=== PATIENT | female | born 1950 | race Caucasian/White ===

== ENCOUNTER 2018-11-28 08:50 | Day surgery (SDC) | payer MEDICARE, OTHER ==
[~2018-11-28] VITALS: Ht 160 cm; Wt 82.6 kg
[~2018-11-28 08:50] MED LIST: ASPI-903 PO
[2018-11-28 09:34] VITALS: Ht 160 cm; Wt 82.6 kg
[2018-11-28] MEDS ORDERED: LIDOCAINE 100 MG SYRINGE ONE (09:37)
[2018-11-28] MEDS ORDERED: PROPOFOL 20 ML ONE (09:37)
[2018-11-28 09:47] VITALS: BP 164/85; PULSE 74; RESP 23
[2018-11-28 10:45] VITALS: BP 130/74; PULSE 62; RESP 18
== END 2018-11-28 11:36 | disposition home or self-care (01) ==
LOC: GIL 08:50
PROVIDERS: ATTEND Internal Medicine Gastroenterology
DX: R19.4 Change in bowel habit (principal); D12.5 Benign neoplasm of sigmoid colon; K64.8 Other hemorrhoids
CPT/HCPCS: 45380; 88305; J2001